=== PATIENT | male | born 1975 | race Caucasian/White ===

== ENCOUNTER 2022-08-20 00:14 | Emergency (ER) | payer SELFPAY ==
[~2022-08-20] VITALS: Ht 170.2 cm; Wt 79.4 kg
[2022-08-20 00:14] VITALS: BP 134/90
--- NOTE | 2022-08-20 01:00 | NUR ---
pt not in ER, pt eloped.
== END 2022-08-20 01:19 | disposition left against medical advice (07) ==
LOC: ER 00:22 → EDBD 00:22 → ER 01:19
DX: Z53.21 Procedure and treatment not carried out due to patient leaving prior to being seen by health care provider (principal); G89.29 Other chronic pain; M79.604 Pain in right leg